=== PATIENT | female | born 1970 | race Caucasian/White ===

== ENCOUNTER → 2017-08-21 | Outpatient (CLI) | payer OTHER ==
[~2017-08-21] MED LIST: AMT50 PO; ATV/1 PO; BSP/5 PO; TNR25 PO; VENL37.593 PO
[2017-08-21 13:10] LABS: COMPLETE YES; HEMATOCRIT 41.2 % (37-47); IG% 0.6 %; LYMPH % 7.4 %; LYMPH ABS # 1.17 K/uL (1.2-3.4); MEAN CELL VOLUME 94.7 fL (80-100); MEAN CORPUSCULAR HEMOGLOBIN 31.7 pg (25-34); MEAN CORPUSCULAR HGB CONC 33.5 g/dl (32-36); MEAN PLATELET VOLUME 9.5 fL (7.4-10.4); MONO % 4.4 %; NEUT % 87.6 %; PLATELET COUNT 299 K/uL (130-400); RED BLOOD COUNT 4.35 M/uL (4.2-5.4); WHITE BLOOD COUNT 15.89 K/uL (4.8-10.8)
[2017-08-21 13:27] LABS: ALT/SGPT 25 U/L (12-78); BLOOD UREA NITROGEN 13 mg/dl (7-18); BUN/CREATININE RATIO 13.4 (10-20); CARBON DIOXIDE 26 mmol/L (21-32); CHLORIDE 106 mmol/L (98-107); CREATININE 0.96 mg/dl (0.60-1.20); GLUCOSE 96 mg/dl (70-99); POTASSIUM 3.9 mmol/L (3.5-5.1); SODIUM 138 mmol/L (136-145)
[2017-08-21 13:30] LABS: ALB/GLOB RATIO 1.1 (0.9-2); ALKALINE PHOSPHATASE 69 U/L (45-117); AST/SGOT 9 U/L (15-37)
== END | disposition home or self-care (01) ==
LOC: C.LABBC 11:50
PROVIDERS: ATTEND Physician Assistant Medical
DX: R53.83 Other fatigue (principal)

== ENCOUNTER → 2018-01-28 | Outpatient (CLI) | payer OTHER ==
--- NOTE | 2018-01-28 15:25 | MAMMOGRAPHY REPORT ---
BILATERAL DIGITAL DIAGNOSTIC MAMMOGRAM TOMOSYNTHESIS WITH CAD AND TARGETED LEFT ULTRASOUND: 01/28/2018 CLINICAL HISTORY: The patient reports left lateral breast pain for approximately 2.5 months. She den ies any lumps or other complaints. TECHNIQUE: Breast tomosynthesis in addition to standard 2D mammography was performed. Current study was also evaluated with a Computer Aided Detection (CAD) system. Bilateral CC and MLO 2D and tomosyn thesis images were obtained. COMPARISON: Comparison is made to exams dated: 07/05/2016 mammogram, 07/04/2015 ultrasound, 07/04/20 15 mammogram, 10/25/2014 ultrasound, 10/25/2014 mammogram, and 06/07/2013 mammogram - [facility]. BREAST COMPOSITION: There are scattered areas of fibroglandular density in both breasts. FINDINGS: A square marker gonzalez the site of pain pointed out by the patient in the left upper outer q uadrant. There are no suspicious masses, calcifications, or areas of architectural distortion noted in either breast. There has been no significant interval change mammographically compared to prior e xams. A benign intramammary lymph node in the right upper outer quadrant is stable. Targeted ultrasound was performed of the area of pain pointed out by the patient, in the left breast at approximately 3:00, centered around 7 cm from the nipple. Sonographically normal tissue is seen i n this region, without evidence of a mass or other suspicious sonographic normality. IMPRESSION: ACR BI-RADS CATEGORY 2: BENIGN, TARGETED ULTRASOUND ACR BI-RADS CATEGORY 2: BENIGN No suspicious mammographic or sonographic abnormality at the site of left lateral breast pain pointed out by the patient. There is no mammographic or targeted sonographic evidence of malignancy. Recom mend clinical follow-up for left breast pain, and recommend routine bilateral screening mammograms in one year. The patient has been verbally notified of the results. Approximately 10% of breast cancers are not detected with mammography. A negative mammographic report should not delay biopsy if a clinically suggestive mass is present. Lexi Pringle M.D. /:01/28/2018 10:45:57 [employer]: Izzy FRYE(David)([place]), [facility] letter sent: Normal 1/2 BI-RADS Code: ACR BI-RADS Category 2: Benign Ultrasound BI-RADS: ACR BI-RADS Category 2: Benign
== END | disposition home or self-care (01) ==
LOC: C.MAMM 10:18
PROVIDERS: ATTEND Family Medicine Adult Medicine
DX: N64.4 Mastodynia (principal); R92.2 Inconclusive mammogram